=== PATIENT | male | born 2000 | race Caucasian/White ===

== ENCOUNTER 2018-07-05 07:55 | Emergency (ER) | payer SELFPAY ==
[~2018-07-05] VITALS: Ht 170.2 cm; Wt 70.4 kg
[2018-07-05 07:57] VITALS: BP 137/72
--- NOTE | 2018-07-05 08:10 | NUR ---
Pt resting on gurney with c/o throat pain and swelling for 5 days with pain increasing over last 3 days. NADN. No obvious deficits observed. Call light within reach. No needs expressed at this time. Pt has unlabored respirations with even chest rise and fall.
[2018-07-05] MEDS ORDERED: DEXAMETHASONE 4 MG/ML, 1ML ONE (08:18)
--- NOTE | 2018-07-05 08:21 | NUR ---
TASK RN: ADMINISTERED MEDICATION PER ORDER. NO ACUTE DISTRESS NOTED.
[2018-07-05] MEDS ORDERED: DEXAMETHASONE 4 MG/ML, 1ML PO ONE (08:30)
--- NOTE | 2018-07-05 08:57 | NUR ---
Patient given discharge instructions and they have confirmed that they understand the instructions. Patient ambulatory with steady gait. Pt left with d/c paperwork, prescription, community resource information, and all personal belongings.
== END 2018-07-05 09:27 | disposition home or self-care (01) ==
LOC: ED 09:04
DX: J02.0 Streptococcal pharyngitis (principal)
CPT/HCPCS: 99283; J1100